=== PATIENT | male | born 1950 | race Caucasian/White ===

== ENCOUNTER 2021-03-31 13:27 | Emergency (ER) | payer MEDICARE, SELFPAY ==
[2021-03-31] VITALS (24 sets, daily range): BP systolic 89–146; BP diastolic 45–76; PULSE 36–56; RESP 10–22; TEMP 36.4; O2SAT 97–98
--- NOTE | 2021-03-31 13:46 | ECG_ITS ---
Measurements Intervals [place] Rate: 38 P: [place]: 0 QRS: 3 QRSD: 158 T: 196 QT: 579 QTc: 461 Interpretive Statements ATRIAL FIBRILLATION WITH SLOW VENTRICULAR RESPONSE LEFT BUNDLE BRANCH BLOCK BASELINE ARTIFACT- AVR, AVF, V1 ABNORMAL ECG Electronically Signed On 03-31-2021 14:45:07 CDT by Elie Hernandez D.O.
[2021-03-31 14:09] LABS: Basophils Percent Auto 0.2 % (0.2-1.2); Eosinophils Percent Auto 0.9 % (0-4.4); Hematocrit 35.9 % (42.0-52.0); Hemoglobin 11.7 g/dL (14.0-18.0); Immature Granulocyte Absolute 0.03 K/mm3 (0.00-0.031); Immature Granulocyte Percent A 0.6 % (0-0.5); Lymphocytes Absolute Auto 0.98 K/mm3 (0.9-3.2); Lymphocytes Percent Auto 20.9 % (18.3-44.2); Mean Corpuscular HGB Conc 32.6 g/dl (32-36); Mean Corpuscular Hemoglobin 31.5 pg (26-34); Mean Corpuscular Volume 96.5 fl (80-100); Mean Platelet Volume 11.6 fl (7.4-10.4); Monocytes Absolute Auto 0.6 K/mm3 (0.1-0.6); Monocytes Percent Auto 12.1 % (2.6-8.5); Neutrophils Absolute Auto 3.1 K/mm3 (1.3-6.7); Neutrophils Percent Auto 65.3 % (45.5-73.1); Nucleated Red Blood Cells Perc 0.6 % (0.0-0.2); Platelet Count Result 146 k/mm3 (150-375); Red Blood Count 3.72 M/mm3 (4.6-6.20); Red Cell Distribution Width 13.4 % (11.5-14.5); White Blood Count 4.7 K/mm3 (4.5-10.0)
[2021-03-31] MEDS: LACTATED RINGERS 2,000 ML 1000 ML (14:11)
--- NOTE | 2021-03-31 14:13 | ED.AMS ---
HPI - Altered Mental Status General Chief Complaint: Altered Mental Status Stated Complaint: AMS/INCREASED LETHARGY Time Seen by Provider: 03/31/21 13:43 Source: family and EMS Mode of arrival: EMS Limitations: altered mental status, clinical condition and dementia History of Present Illness HPI narrative: 70-year-old male According to his daughter he has been sharply declining for 2 to 3 months with worsening fluctuating dementia sometimes marked by hallucinations, reduction in attempted and succeeded activities of daily living, and worsening of his immobility due to his chronic back pain Apparently he initially had a fairly lengthy hospitalization at [facility] and it does not sound like he made a lot of progress while he was there however he was able to be discharged to a rehab facility in early February Subsequent to that they actually took him home but that fairly quickly proved to be unworkable and he was again readmitted to [facility] About 2 weeks ago he was again discharged this time to a SNF in [place] His daughter is here and she reports that his decline over the last 5 or 6 days has accelerated He mentions that she visited him on Thursday to be is able to eat part of a hamburger and some fries but since then his p.o. intake is dwindled to near nothing and his level of alertness and activity level have also declined She asked for him to be brought here today to screen for a medical reason for this versus giving up Apart from the dementia and chronic back pain she also mentions a history of diabetes and coronary artery disease The records accompanying the patient from the SNF are unfortunately lacking a medication list and that will have to be sought out, the daughter knows that he has a [facility] my chart but does not have the computer to access it with She also believes that as far as she knows the patient is still his own POA although she mentions that was supposed to have been addressed by his primary care doctor but it does not appear that it ever was Related Data Allergies Allergy/AdvReac Type Severity Reaction Status Date / Time No Known Allergies Allergy Unverified 02/23/15 11:20 Review of Systems Review of Systems: ROS unobtainable: Yes unobtainable due to mental status PMFSH Social History Social History Gender identity (if verbalized by the patient): Male Exam Const: General: cooperative and ill appearing Nutritional Appearance: obese Limitations: altered mental status HENMT: Head: normal to inspection, normocephalic and atraumatic Ears: external ears normal General nose exam: no epistaxis Mouth: Yes dry mucous membranes Eyes: Conjunctivae: conjunctivae normal EOM: EOMs intact bilaterally Neck: Neck: normal visual inspection, supple and no JVD Resp: Effort & Inspection: normal respiratory effort and not labored Auscultation: clear to auscultation bilaterally and other (BS =) Cardio: Rate: regular rate and bradycardic Rhythm: regular rhythm Heart sounds: no murmurs GI: GI Palp: Yes Soft to palpation, No Guarding due to palpation present (GI) and No Rigid due to palpation Skin: General skin exam: normal color and no rashes or lesions noted Neuro: Other: Oriented possibly x1 does not follow any commands Extrem: General: normal to inspection Other: Diffuse anasarca Course Course Emergency Course: Discussed with cardiology, and with hospitalist for admission Further discussion with the daughter who it also discussed with her mom the patient's They would prefer him to be a DNR and might even entertain hospice and they would not want any cardiac intervention such as a pacer Vital Signs Vital signs: Vital Signs Temperature 36.4 C L 03/31/21 13:28 Pulse Rate 42 L 03/31/21 13:28 Respiratory Rate 18 03/31/21 13:28 Blood Pressure 89/45 L 03/31/21 13:28 Pulse Oximetry 98 03/31/21 13:28 Temperature 36.4 C L 03/31/21 13:28 Pulse Rate 44 L 03/31/21 14
[2021-03-31 14:16] LABS: Add Urine Microscopic? YES; Appearance Urine Clear (Clear); Bacteria Urine Trace /hpf; Bilirubin Urine Negative (Negative); Color Urine Amber (Yellow); Glucose Urine UA Negative (Negative); Ketones Urine Negative (Negative); Leukocyte Esterase Ur 1+ LEU/UL (Negative); Mucus Urine Rare /lpf; Nitrate Urine Negative (Negative); Protein Urine 1+ mg/dL (Negative); Specific Grav Ur 1.023 (1.001-1.035)
[2021-03-31 14:20] LABS: Lactic Acid Reflex 0.9 mmol/L (0.7-2.1)
[2021-03-31 14:21] LABS: Alanine Aminotransferase 44 U/L (4-50); Albumin Level 3.3 g/dL (3.5-5.1); Alkaline Phosphatase 123 U/L (38-126); Anion Gap 6 mmol/L (8-16); Aspartate Amino Transferase 54 U/L (17-59); Bilirubin,Total 0.8 mg/dL (0.2-1.3); Blood Urea Nitrogen 41 mg/dL (9-20); Calcium 9.8 mg/dL (8.4-10.2); Carbon Dioxide 28 mmol/L (22-30); Chloride 110 mmol/L (98-107); Estimated CRCL calculation 69 ml/min; Estimated Glomerular Filt Rate 54; Glucose 75 mg/dL (75-110); Potassium 4.1 mmol/L (3.4-5.0); Sodium 144 mmol/L (137-145)
[2021-03-31 14:33] LABS: Blood Urine Negative (Negative)
[2021-03-31] MEDS: NALOXONE HCL 0.4 MG/ML VIAL IV PUSH (14:41)
[2021-03-31 15:10] LABS: Magnesium 2.2 mg/dL (1.6-2.3)
[2021-03-31 15:22] LABS: Troponin I < 0.012 ng/mL (0.000-0.034)
[2021-03-31 15:40] LABS: Free T4 Free Thyroxine 1.06 ng/mL (0.78-2.19)
[2021-03-31 15:42] LABS: Thyroid Stimulating Hormone 0.912 uIU/mL (0.465-4.680)
--- NOTE | 2021-03-31 16:40 | WPDCN ---
Assessment and Plan Assessment and plan (1) Dementia: Qualifiers: Dementia type: vascular dementia Dementia behavioral disturbance: without behavioral disturbance Qualified Code(s): F01.50 - Vascular dementia without behavioral disturbance Code(s): F03.90 - Unspecified dementia without behavioral disturbance Status: Acute Assessment and Plan: Currently it appears that the patient has end-stage dementia with more rapid progression over the past few months such that he is having dysphagia decreased speech incontinence inability to get out of bed without assistance and inability to express his needs as well as increased hallucinations. After prolonged discussion with daughter Melinda, she opted for EMS transport back to [facility] to meet with a hospice authorization representative and admit to hospice care. Discussed with Dr. Richardson, ED physician. (2) Atrial fibrillation with slow ventricular response: Code(s): I48.91 - Unspecified atrial fibrillation Status: Acute (3) Coronary artery disease: Qualifiers: Coronary Disease-Associated Artery/Lesion type: [place] artery [place] vs. transplanted heart: [place] heart Associated angina: without angina Qualified Code(s): I25.10 - Atherosclerotic heart disease of [place] coronary artery without angina pectoris Code(s): I25.10 - Atherosclerotic heart disease of [place] coronary artery without angina pectoris Status: Acute (4) Type 2 diabetes mellitus with vascular disease: Code(s): E11.59 - Type 2 diabetes mellitus with other circulatory complications Status: Acute (5) Hypertension, essential: Code(s): I10 - Essential (primary) hypertension Status: Acute (6) Protein calorie malnutrition: Qualifiers: Protein-calorie malnutrition severity: moderate Qualified Code(s): E44.0 - Moderate protein-calorie malnutrition Code(s): E46 - Unspecified protein-calorie malnutrition Status: Acute Assessment and Plan: Degree of malnutrition is likely masked by volume depletion. [facility] Data of Consult Date/Time: 03/31/21 16:40 Primary Care Provider: Enrrique Nagy, Consult Narrative Narrative: This patient is seen in the emergency department at the request of Dr. Richardson. History is obtained at bedside and [facility] roommate from his daughter. Maurice Orozco is a 70 year old male with at least 2 years of declining mental status. He has a long history of punching and yelling in his sleep. He has chronic back problems and was on narcotics chronically until they were weaned off sometime in the past 2 years. They were restarted in December to January of this year for worsened chronic back pain. Even prior to the narcotics he was having intermittent hallucinations while awake. His mobility worsened. He was using a Rollator walker for several months. He has been incontinent of urine with urgency incontinence for several months. He has a history of coronary artery disease with stents, strokes, type 2 diabetes, high blood pressure. He was hospitalized at [facility] about 3 months ago. He was discharged to rehab and did not make good progress. He went home from rehab and did not do well. He had multiple falls. He was hospitalized at [facility] again during the last week of February. He had CT scans and labs at that time. According to the daughter, no infection was found and no new strokes. He was sent to [facility] for rehabilitation and has made no progress there. In fact, he has worsened. He no longer recognizes his or his other family members. During the past week or so he has been eating very little. Refusing food. Choking on food. Losing weight. Today he was less responsive. His daughter had him transported to the emergency department in hopes that there was something reversible neck be treated. She is accepting that he h
--- NOTE | 2021-03-31 17:14 | PC.NURSE ---
spoke to family about doing BP, daughter think that it will disturb the pt, would prefer not to have them done. provider is agreeable to this. awaiting dispo, related to Hospice.
== END 2021-03-31 19:10 | disposition hospice, inpatient (51) ==
PROVIDERS: Emergency Provider Emergency Medicine; PCP Internal Medicine
DX: F01.50 Vascular dementia, unspecified severity, without behavioral disturbance, psychotic disturbance, mood disturbance, and anxiety (principal); I48.91 Unspecified atrial fibrillation; I25.10 Atherosclerotic heart disease of native coronary artery without angina pectoris; E11.59 Type 2 diabetes mellitus with other circulatory complications; I10 Essential (primary) hypertension; E44.0 Moderate protein-calorie malnutrition; F03.90 Unspecified dementia, unspecified severity, without behavioral disturbance, psychotic disturbance, mood disturbance, and anxiety; E78.5 Hyperlipidemia, unspecified; G47.52 REM sleep behavior disorder; Z95.5 Presence of coronary angioplasty implant and graft; Z87.891 Personal history of nicotine dependence; I44.7 Left bundle-branch block, unspecified; R82.998 Other abnormal findings in urine
CPT/HCPCS: 36415; 51701; 80053; 81001; 83605; 83735; 84439; 84443; 84484; 85025; 87040; 87077; 87086; 87088; 87186; 93005; 96365; 96366; 96375; 99284; J0696; J2310; J7120